=== PATIENT | male | born 1980 | race Caucasian/White ===

== ENCOUNTER 2019-03-14 14:49 | Emergency (ER) | payer SELFPAY ==
[~2019-03-14] VITALS: Ht 188 cm; Wt 104.3 kg
[~2019-03-14 14:49] MED LIST: ACHD5005 PO; CPR500T PO; HYDR1TAB8 OP; XANAX
--- NOTE | 2019-03-14 16:19 | ED Abdominal Pain ---
General Chief Complaint: Abdominal/GI Problems Stated Complaint: STOMACH PAIN/BLOOD IN STOOL Nursing Triage Note: PT AMBULATED TO ROOM 8 PT CO OF EPIGASTRIC PAIN AND DARK STOOL FOR A COUPLE DAYS Sepsis Screen: No Definite Risk Source of Information: Patient Exam Limitations: No Limitations (KARIN GIRON STUDENT) History of Present Illness Date Seen by Provider: Mar 14, 2019 Time Seen by Provider: 15:45 Initial Comments The patient reports intermittent epigastric pain for the last two days. He describes the pain as "feeling like gas pain" and rates it at 4-5/10. He also reports the sensation of bloating that has been going on for much longer and bl ack stools for a few days before the pain started. The patient has been nauseated but has not vomited and has had no loss of appetite or changes in diet. He reports loose stools but no diarrhea and a short bout of constipation 3 days ago. The patient also reports fatigue for the past 2 months and a 40lb weight gain over the past year. The remainder of the review of systems was nega tive. The physical exam was significant for epigastric tenderness. Location Injury Occurred: epigastric region Timing/Duration: 2-3 Days Severity/Quality: Moderate Location: Epigastric Radiation: No Radiation Activities at Onset: None (KARIN GIRON STUDENT) Timing/Duration: 2-3 Days Severity/Quality: Moderate, Aching Location: Epigastric Radiation: No Radiation Modifying Factors: Improves With Other (no noted aggravating or relieving factors) Associated Symptoms: No Fever/Chills; Nausea/Vomiting; No Swelling/Mass in Abdomen, No Weakness (IVIS SMITH MD) Allergies and Home Medications Allergies Coded Allergies: No Known Drug Allergies (Unverified , 06/16/10) Home Medications No Active Prescriptions or Reported Meds Patient Home Medication List Home Medication List Reviewed: Yes (KARIN GIRON STUDENT) Home Medication List Reviewed: Yes (IVIS SMITH MD) Review of Systems Review of Systems Constitutional: No fever; weight gain Respiratory: Denies Cough, Denies Shortness of Air Cardiovascular: Denies Chest Pain, Denies Lightheadedness Gastrointestinal: Abdomen Distended, Abdominal Pain, Nausea (KARIN GIRON STUDENT) Constitutional: see HPI Gastrointestinal: Abdominal Pain; Denies Diarrhea; Nausea, Rectal Bleeding (dark stools) Genitourinary: No Symptoms Reported Musculoskeletal: no symptoms reported Skin: no symptoms reported (IVIS SMITH MD) Past Mkqdyix-Qvluxw-Pgzouk Hx Past Med/Social Hx: Reviewed Nursing Past Med/Soc Hx (IVIS SMITH MD) Patient Social History Alcohol Use: Denies Use Recreational Drug Use: No Smoking Status: Current Everyday Smoker Type Used: Cigarettes Recent Foreign Travel: No Contact w/Someone Who Travel: No Recent Infectious Disease Expo: No Recent Hopitalizations: No (KARIN GIRON STUDENT) Alcohol Use: Denies Use Recreational Drug Use: No Smoking Status: Current Everyday Smoker (IVIS SMITH MD) Seasonal Allergies Seasonal Allergies: No (KARIN GIRON) Past Medical History Surgeries: Yes (HERNIA, FACIAL, KIDNEYSTONE) Tonsillectomy Respiratory: No Cardiac: No Neurological: No Sexually Transmitted Disease: No Kidney Stones Gastrointestinal: No Musculoskeletal: Yes (reports old Rx of Hydrocodone at home from renal stones) Chronic Back Pain Endocrine: No Cancer: No Psychosocial: Yes Anxiety Integumentary: No Blood Disorders: No (KARIN GIRON STUDENT) Surgeries: Yes Abdominal Respiratory: No Cardiac: No Genitourinary: Yes Musculoskeletal: Yes Psychosocial: Yes (IVIS SMITH MD) Family Medical History Reviewed Nursing Family Hx (IVIS SMITH MD) Physical Exam Vital Signs Vital Signs - First Documented 03/14/19 15:05 Temp 98.1 Pulse 102 Resp 18 B/P (MAP) 138/101 (113) Pulse Ox 97 (IVIS SMITH MD) Vital Signs Capillary Refill : Less Than 3 Seconds (KARIN GIRON STUDENT) Height/Weight/BMI Height: 6'2.00" Weight: 230lbs. oz. 104.397284lw; BMI Method:Stated General Appearance: WD/WN, no apparent distress Respiratory: lungs clear, normal breath sounds, no respiratory distress Cardiovascular: regular rate, rhythm, no edema, no murmur Gastrointestinal: normal bowel sounds, soft, no pulsatile mass, tenderness Rectal: normal rectal tone, black stool, heme positive stool; No mass Skin: normal color, warm/dry (ETCHESON,KARIN K MED STUDENT) General Appearance: WD/WN, no apparent distress Neck: full range of motion, supple Respiratory: lungs clear, normal breath sounds Cardiovascular: regular rate, rhythm, no murmur Gastrointestinal: soft, tenderness (epigastric mild) Back: normal inspection, no CVA tenderness, no vertebral tenderness Neurologic/Psychiatric: alert, oriented x 3 Skin: normal color, warm/dry (IVIS SMITH MD) Progress/Results/Core Measures Results/Orders Lab Results Laboratory Tests Test 03/14/19 16:05 Range/Units White Blood Count 6.7 4.3-11.0 10^3/uL Red Blood Count 4.70 4.35-5.85 10^6/uL Hemoglobin 14.3 13.3-17.7 G/DL Hematocrit 42 40-54 % Mean Corpuscular Volume 89 80-99 FL Mean Corpuscular Hemoglobin 30 25-34 PG Mean Corpuscular Hemoglobin Concent 34 32-36 G/DL Red Cell Distribution Width 12.4 10.0-14.5 % Platelet Count 248 130-400 10^3/uL Mean Platelet Volume 11.0 H 7.4-10.4 FL Neutrophils (%) (Auto) 60 42-75 % Lymphocytes (%) (Auto) 31 12-44 % Monocytes (%) (Auto) 6 0-12 % Eosinophils (%) (Auto) 2 0-10 % Basophils (%) (Auto) 0 0-10 % Neutrophils # (Auto) 4.1 1.8-7.8 X 10^3 Lymphocytes # (Auto) 2.1 1.0-4.0 X 10^3 Monocytes # (Auto) 0.4 0.0-1.0 X 10^3 Eosinophils # (Auto) 0.1 0.0-0.3 10^3/uL Basophils # (Auto) 0.0 0.0-0.1 10^3/uL Sodium Level 141 135-145 MMOL/L Potassium Level 3.8 3.6-5.0 MMOL/L Chloride Level 102 98-107 MMOL/L Carbon Dioxide Level 30 21-32 MMOL/L Anion Gap 9 5-14 MMOL/L Blood Urea Nitrogen 13 7-18 MG/DL Creatinine 0.93 0.60-1.30 MG/DL Estimat Glomerular Filtration Rate > 60 BUN/Creatinine Ratio 14 Glucose Level 90 70-105 MG/DL Calcium Level 8.6 8.5-10.1 MG/DL Corrected Calcium 8.6 8.5-10.1 MG/DL Total Bilirubin 0.3 0.1-1.0 MG/DL Aspartate Amino Transf (AST/SGOT) 22 5-34 U/L Alanine Aminotransferase (ALT/SGPT) 32 0-55 U/L Alkaline Phosphatase 103 40-136 U/L Total Protein 7.0 6.4-8.2 GM/DL Albumin 4.0 3.2-4.5 GM/DL Lipase 658 H 8-78 U/L (IVIS SMITH MD) My Orders Orders - IVIS SMITH MD Cbc With Automated Diff (03/14/19 15:53) Comprehensive Metabolic Panel (03/14/19 15:53) Lipase (03/14/19 15:53) Ed Iv/Invasive Line Start (03/14/19 15:53) Fecal Occult Bedside (03/14/19 15:53) Famotidine Injection (Pepcid Injection) (03/14/19 16:22) Ct Abdomen/Pelvis W (03/14/19 17:02) Ed Iv/Invasive Line Start (03/14/19 17:02) Lactated Ringers (Lr 1000 Ml Iv Solution (03/14/19 17:02) Iohexol Injection (Omnipaque 350 Mg/Ml 1 (03/14/19 17:30) Received Contrast (Hold Metformin- Contr (03/14/19 17:30) Sodium Chloride Flush (Catheter Flush Sy (03/14/19 17:30) Ns (Ivpb) (Sodium Chloride 0.9% Ivpb Bag (03/14/19 17:30) Hyoscyamine Sl Tablet (Levsin Sl Tablet) (03/14/19 18:15) (IVIS SMITH MD) Medications Given in ED Current Medications Medications Dose Ordered Sig/Jordan Route Start Time Stop Time Status Last Admin Dose Admin Iohexol 100 ml ONCE ONCE IV 03/14/19 17:30 03/14/19 17:31 DC 03/14/19 17:31 100 ML Lactated Ringer's 1,000 ml @ 0 mls/hr Q0M ONCE IV 03/14/19 17:02 03/14/19 17:04 DC 03/14/19 17:27 1,000 MLS/HR Sodium Chloride 10 ml NEEDED PRN IV 03/14/19 17:30 03/14/19 17:31 10 ML Sodium Chloride 100 ml ONCE ONCE IV 03/14/19 17:30 03/14/19 17:31 DC 03/14/19 17:31 80 ML (IVIS SMITH MD) Vital Signs/I&O 03/14/19 15:05 Temp 98.1 Pulse 102 Resp 18 B/P (MAP) 138/101 (113) Pulse Ox 97 (IVIS SMITH MD) Blood Pressure Mean: 113 Progress Progress Note : Progress Note I have seen and evaluated the patient and agree with above except as indicated. I have directed the plan of care. Patient is here with epigastric abdominal pain that has worsened over the last couple of days. Denies significant pain now but does feel bloated. We will check labs including CBC, CMP and lipase. Monitor patient. 1705: Patient does have elevated lipase. We will get CT abdomen and pelvis to evaluate pancreas. LR 1 L bolus. Patient did receive Pepcid 20 mg IV and he states that did help with abdominal cramping. Monitor patient. 1810: Overall improved. CT results as scheduled with the patient. Less than 0.125 mg by mouth given. Patient informed of ileus findings. He is still having bowel movements. He would like to try this at home. We did discuss concerns as well as risk and benefits. He would still like to try this at home. Discharge home with return precautions. Patient verbalize understanding of instructions and agreement with plan. Struck to return for any worsening and to stick to clear liquid diet for the next one to 2 days. He did discuss the case with Dr. Nielsen and he agrees to see him in the office. Patient to call for appointment. (IVIS SMITH MD) Diagnostic Imaging Diagonstic Imaging: CT Plain Films/CT/US/NM/MRI: abdomen, pelvis Comments [facility]. [place], [place] NAME: ACE [facility] REC#: [id number] PT STATUS: REG ER : 1980 PHYSICIAN: IVIS SMITH MD ADMIT DATE: 03/14/19/ER Draft Date of Exam:03/14/19 CT ABDOMEN/PELVIS W PROCEDURE: CT abdomen and pelvis with contrast. TECHNIQUE: Multiple contiguous axial images were obtained through the abdomen and pelvis after administration of intravenous contrast. Auto Exposure Controls were utilized during the CT exam to meet ALARA standards for radiation dose reduction. INDICATION: Epigastric pain for three days. Dark stools. Comparison is made with a study from 08/31/2013. FINDINGS: Liver, gallbladder and bile ducts are normal. The spleen, pancreas and adrenals are normal. The kidneys, ureters and bladder are normal. There are multiple fluid and air-filled loops of small bowel which are upper normal in diameter at 3 cm with no bowel wall edema seen. The distal bowel loops are filled with fluid but less distended. An obstructing lesion is not seen. There is air and fecal material in the colon. No edema of the colon. There is no free air or free fluid. IMPRESSION: Bowel gas pattern likely secondary to an ileus or enteritis. Low-grade partial small bowel obstruction cannot yet be excluded. Dictated on workstation # [id number] Dict: 03/14/19 1740 Trans: 03/14/19 1744 [id number] Interpreted by: JAILYN SOHOK MD Electronically signed by: (IVIS SMITH MD) Departure Impression Primary Impression: Abdominal pain Qualified Codes: R10.13 - Epigastric pain Additional Impression: Pancreatitis Qualified Codes: K85.90 - Acute pancreatitis without necrosis or infection, unspecified Disposition: 01 HOME, SELF-CARE Condition: Stable Departure-Patient Inst. Decision time for Depature: 18:18 (IVIS SMITH MD) Referrals: NO,LOCAL PHYSICIAN (PCP/Family) Primary Care Physician Patient Instructions: Acute Abdomen (Belly Pain), Adult (DC), Gastrointestinal Bleeding (DC), Pancreatitis (DC) Add. Discharge Instructions: All discharge instructions reviewed with patient and/or family. Voiced understanding. Clear liquid diet for the next 24-48 hours. Keep hydrated with taking small sips frequently. You may use lfxj-ofr-zfiznaj omeprazole 20 mg 1 tablet daily for at least the next 2 weeks. Up to the next 6 weeks. You should follow-up with Dr. Nielsen for further evaluation and possible upper endoscopy (scope). Call his offic e for appointment. Return for worse pain, fever, vomiting, weakness, breathing problems or other concerns as needed. You may take Tylenol/acetaminophen 1000 mg every 8 hours as needed for pain. Scripts Hyoscyamine Sulfate (Levsin-Sl) 0.125 Mg Tab.subl 0.125 MG SL Q4H, #10 TAB 0 Refills Prov: IVIS SMITH MD 03/14/19 Copy Copies To 1: CYNTHIA NIELSEN MD, JOSHUA K MED STUDENT Mar 14, 2019 16:19 IVIS SMITH MD Mar 14, 2019 17:14
[2019-03-14 16:22] LABS: BASOPHILS % (AUTO) 0 % (0-10); EOSINOPHILS # (AUTO) 0.1 10^3/uL (0.0-0.3); EOSINOPHILS % (AUTO) 2 % (0-10); HEMATOCRIT 42 % (40-54); HEMOGLOBIN 14.3 G/DL (13.3-17.7); LYMPHOCYTES # (AUTO) 2.1 X 10^3 (1.0-4.0); LYMPHOCYTES % (AUTO) 31 % (12-44); MEAN CORPUSCULAR HEMOGLOBIN 30 PG (25-34); MEAN CORPUSCULAR HGB CONC 34 G/DL (32-36); MEAN CORPUSCULAR VOLUME 89 FL (80-99); MONOCYTES # (AUTO) 0.4 X 10^3 (0.0-1.0); MONOCYTES % (AUTO) 6 % (0-12); NEUTROPHILS # (AUTO) 4.1 X 10^3 (1.8-7.8); NEUTROPHILS % (AUTO) 60 % (42-75); PLATELET COUNT 248 10^3/uL (130-400); RED CELL DISTRIBUTION WIDTH 12.4 % (10.0-14.5); WHITE BLOOD COUNT 6.7 10^3/uL (4.3-11.0)
[2019-03-14] MEDS ORDERED: FAMOTIDINE 20MG/2ML IV (PEPCID) IV STA (16:22)
[2019-03-14 16:43] LABS: ALANINE AMINOTRANSFERASE 32 U/L (0-55); ALKALINE PHOSPHATASE 103 U/L (40-136); BILIRUBIN,TOTAL 0.3 MG/DL (0.1-1.0); BUN/CREATININE RATIO 14; CALCIUM 8.6 MG/DL (8.5-10.1); CARBON DIOXIDE 30 MMOL/L (21-32); CHLORIDE 102 MMOL/L (98-107); CREATININE SERUM 0.93 MG/DL (0.60-1.30); GFR ESTIMATED > 60; GLUCOSE 90 MG/DL (70-105); LIPASE 658 U/L (8-78); POTASSIUM 3.8 MMOL/L (3.6-5.0); SODIUM 141 MMOL/L (135-145)
[2019-03-14] MEDS ORDERED: LACTATED RINGERS 1,000 ML IV ONE (17:02)
[2019-03-14] MEDS ORDERED: IOHEXOL 350 MG/ML 100 ML (OMNIPAQUE 350) VIAL IV ONE (17:30)
[2019-03-14] MEDS ORDERED: HOLD METFORMIN - RECEIVED CONTRAST 20 ML VIAL IV SCH (17:30)
[2019-03-14] MEDS ORDERED: CATHETER FLUSH 10 ML SYR IV PRN (17:30)
[2019-03-14] MEDS ORDERED: NS 100 ML (IVPB) BAG IV ONE (17:30)
--- NOTE | 2019-03-14 17:45 | Diagnostic Imaging Report ---
PROCEDURE: CT abdomen and pelvis with contrast. TECHNIQUE: Multiple contiguous axial images were obtained through the abdomen and pelvis after administration of intravenous contrast. Auto Exposure Controls were utilized during the CT exam to meet ALARA standards for radiation dose reduction. INDICATION: Epigastric pain for three days. Dark stools. Comparison is made with a study from 08/31/2013. FINDINGS: Liver, gallbladder and bile ducts are normal. The spleen, pancreas and adrenals are normal. The kidneys, ureters and bladder are normal. There are multiple fluid and air-filled loops of small bowel which are upper normal in diameter at 3 cm with no bowel wall edema seen. The distal bowel loops are filled with fluid but less distended. An obstructing lesion is not seen. There is air and fecal material in the colon. No edema of the colon. There is no free air or free fluid. IMPRESSION: Bowel gas pattern likely secondary to an ileus or enteritis. Low-grade partial small bowel obstruction cannot yet be excluded. Dictated by: Dictated on workstation # [id number]
[2019-03-14] MEDS ORDERED: HYOSCYAMINE 0.125 MG (LEVSIN) TAB SL ONE (18:15)
[2019-03-14] MEDS ORDERED: HYOS0.1283 SL (18:16)
[2019-03-14 18:24] VITALS: BP 138/101
== END 2019-03-14 18:24 | disposition home or self-care (01) ==
LOC: EDUNIT# 14:49 → ER 14:50
DX: K85.90 Acute pancreatitis without necrosis or infection, unspecified (principal); F41.9 Anxiety disorder, unspecified; F17.210 Nicotine dependence, cigarettes, uncomplicated; Z90.89 Acquired absence of other organs; Z87.442 Personal history of urinary calculi
CPT/HCPCS: 36415; 74177; 80053; 82274; 83690; 85025

== ENCOUNTER 2021-05-11 21:14 | Emergency (ER) | payer SELFPAY ==
[~2021-05-11] VITALS: Ht 73 cm; Wt 114.9 kg
[~2021-05-11 21:14] MED LIST changes: +HYOS0.1283 SL
--- OUTSIDE RECORDS SUMMARY | 2021-05-11 21:19 | XMS REPORT | Clinical Summary ---
Author Author [facility] Organization [facility] Address Unknown Phone Unavailable Care Team Providers Care Cloth Trimmer Hand Name Role Phone Yvon Jalloh MD PCP [phone] Source Comments Some departments are not documenting in the electronic medical record. If you d o not see the information that you expected, contact Release of Information in [facility] Health Information Management department at [phone] for further assistan ce in locating additional records.[facility] Allergies Not on File Medications Not on file Active Problems Not on file Social History Date Tobacco Use Types Packs/Day Years Used Never Assessed Sex Assigned at Date Recorded Not on file Last Filed Vital Signs Not on file Plan of Treatment Health Maintenance Due Date Last Done Comments HIV SCREENING 1996 DTAP/TDAP VACCINES (1 - 10/14/1999 Tdap) HEPATITIS C SCREENING 10/14/1999 PHYSICAL (COMPREHENSIVE) 10/14/1999 EXAM INFLUENZA VACCINE 02/10/2021 Results Not on filefrom Last 3 Months
--- OUTSIDE RECORDS SUMMARY | 2021-05-11 21:19 | XMS REPORT | Clinical Summary ---
Author Author [facility] Organization [facility] Address Unknown Phone Unavailable Care Team Providers Care Financial Administrative Assistant Name Role Phone PCP Unavailable Allergies No known active allergies Medications No known medications Active Problems Not on file Social History Date Tobacco Use Types Packs/Day Years Used Current Every Day Smoker Cigarettes 0.5 13 Comments Alcohol Use Standard Drinks/Week No 0 (1 standard drink = 0.6 o z pure alcohol) Sex Assigned at Date Recorded Not on file Last Filed Vital Signs Reading Time Taken Comments Vital Sign 143/77 08/20/2014 1:47 PM PROCEDURES ANALYST Blood Pressure 120 08/20/2014 1:47 PM PROCEDURES ANALYST Pulse 38.6 C (101.5 F) 08/20/2014 1:47 PM PROCEDURES ANALYST Temperature 18 08/20/2014 1:47 PM PROCEDURES ANALYST Respiratory Rate 100% 08/20/2014 1:47 PM PROCEDURES ANALYST Oxygen Saturation - - Inhaled Oxygen Concentration 77.1 kg (170 lb) 08/20/2014 1:47 PM PROCEDURES ANALYST Weight 188 cm (6' 2") 08/20/2014 1:47 PM PROCEDURES ANALYST Height 21.83 08/20/2014 1:47 PM PROCEDURES ANALYST Body Mass Index Plan of Treatment Not on file Results Not on filefrom Last 3 Months
--- NOTE | 2021-05-11 22:23 | ED Abdominal Pain ---
General Chief Complaint: Abdominal/GI Problems Stated Complaint: L SIDE ABD PAIN Source of Information: Patient Exam Limitations: No Limitations History of Present Illness Date Seen by Provider: May 11, 2021 Time Seen by Provider: 22:11 Initial Comments This is a 40-year-old male who presented to the ER with complaints of left flank pain That started approximately 1.5 hours ago. States that he was sitting at home when all this and he felt a sharp stabbing pain in his mid back and is now radiated into his left lower quadrant. States that he does have a history of kidney stones and feels that this might be another stone. States pain is sharp, stabbing, waxes and wanes, 10 out of 10 pain. Additionally reports intermittent nausea when pain is at its highest. Has not taken anything prior to arrival. Denies fever, chills, vomiting, difficulty urinating, hematuria, dysuria. Allergies and Home Medications Allergies Coded Allergies: No Known Drug Allergies (Unverified , 06/16/10) Patient Home Medication List Home Medication List Reviewed: Yes Hyoscyamine Sulfate (Levsin-Sl) 0.125 Mg Tab.subl, 0.125 MG SL Q4H Prescribed by: IVIS SMITH on 03/14/191815 Review of Systems Review of Systems Constitutional: no symptoms reported EENTM: No Symptoms Reported Respiratory: No Symptoms Reported Cardiovascular: No Symptoms Reported Gastrointestinal: See HPI Genitourinary: See HPI Musculoskeletal: see HPI Skin: no symptoms reported Psychiatric/Neurological: No Symptoms Reported Endocrine: No Symptoms Reported Hematologic/Lymphatic: No Symptoms Reported Past Ribhbww-Gvmwzj-Ztsmld Hx Seasonal Allergies Seasonal Allergies: No Past Medical History Surgeries: Yes Abdominal Respiratory: No Cardiac: No Neurological: No Sexually Transmitted Disease: No Genitourinary: Yes Kidney Stones Gastrointestinal: No Musculoskeletal: Yes Chronic Back Pain Endocrine: No Cancer: No Psychosocial: Yes Anxiety Integumentary: No Blood Disorders: No Physical Exam Vital Signs Capillary Refill : Height/Weight/BMI Height: 6'2.00" Weight: 230lbs. oz. 104.544495mo; BMI Method:Stated General Appearance: WD/WN, no apparent distress HEENT: PERRL/EOMI, normal ENT inspection, pharynx normal Neck: full range of motion, supple, normal inspection Respiratory: lungs clear, normal breath sounds, no respiratory distress, no accessory muscle use Progress/Results/Core Measures Results/Orders Lab Results Laboratory Tests Test 05/11/21 22:47 Range/Units My Orders Orders - BAYRON SALMON APRN Ketorolac Injection (Toradol Injection) (05/11/21 22:30) Ondansetron Injection (Zofran Injectio (05/11/21 22:30) Fentanyl Inj (Sublimaze Injection) (05/11/21 22:30) Ns Iv 1000 Ml (Sodium Chloride 0.9%) (05/11/21 22:30) Abdomen/Kub 1view (05/11/21 22:18) Ed Iv/Invasive Line Start (05/11/21 22:18) Ua Culture If Indicated (05/11/21 22:18) Medications Given in ED Current Medications Medications Dose Ordered Sig/Jordan Route Start Time Stop Time Status Last Admin Dose Admin Fentanyl Citrate 50 mcg ONCE ONCE IVP 05/11/21 22:30 05/11/21 22:31 DC 05/11/21 22:34 50 MCG Ketorolac Tromethamine 30 mg ONCE ONCE IVP 05/11/21 22:30 05/11/21 22:31 DC 05/11/21 22:34 30 MG Ondansetron HCl 4 mg ONCE ONCE IVP 05/11/21 22:30 05/11/21 22:31 DC 05/11/21 22:34 4 MG Sodium Chloride 1,000 ml @ 999 mls/hr Q1H ONCE IV 05/11/21 22:30 05/11/21 23:30 05/11/21 22:34 999 MLS/HR Departure Impression Primary Impression: Calculus of kidney Disposition: 01 HOME, SELF-CARE Condition: Improved Departure-Patient Inst. Decision time for Depature: 23:11 Referrals: NO,LOCAL PHYSICIAN (PCP/Family) Primary Care Physician Patient Instructions: Kidney Stone, Adult ED, How to Strain Your Urine Add. Discharge Instructions: Plan: 1. Drink plenty of fluids to help stone pass. 2. May take Zofran as needed every 6 hours for nausea. 3. Take Flomax daily every evening as directed. 4. Call Dr. Chen office for follow up appointment. 5. Take Hydrocodone every 6 hours as needed for severe pain. May take with Ibuprofen 600mg by mouth. 6. Take Lisinopril 10mg by mouth daily and establish with primary care provider. 7. Return for any new, concerning, or worsening symptoms. All discharge instructions reviewed with patient and/or family. Voiced understanding. Scripts Tamsulosin HCl (Flomax) 0.4 Mg Cap 0.4 MG PO DAILY for 7 Days, #7 CAP 0 Refills Prov: BAYRON SALMON COURT INTERPRETER 05/11/21 Ondansetron (Ondansetron Odt) 4 Mg Tab.rapdis 4 MG PO Q6H PRN for NAUSEA/VOMITING, #8 TAB 0 Refills Prov: BAYRON SALMON COURT INTERPRETER 05/11/21 Hydrocodone/Acetaminophen (Hydrocodone-Acetamin 5-325 mg) 1 Each Tablet 1 TAB PO Q6H PRN for PAIN-SEVERE (8-10), #10 TAB 0 Refills Prov: BAYRON SALMON COURT INTERPRETER 05/11/21 Lisinopril (Lisinopril) 10 Mg Tablet 10 MG PO DAILY, #30 TAB 0 Refills Prov: BAYRON SALMON COURT INTERPRETER 05/11/21 BAYRON SALMON APRN May 11, 2021 22:23
[2021-05-11] MEDS ORDERED: NS IV 1000 ML 1,000 ML IV ONE (22:30)
[2021-05-11] MEDS ORDERED: KETOROLAC 30 MG/ML VIAL IVP ONE (22:30)
[2021-05-11] MEDS ORDERED: ONDANSETRON 4 MG/2 ML (SDV) Z0FRAN IVP ONE (22:30)
[2021-05-11] MEDS ORDERED: fentaNYL INJ 100 MCG/2 ML AMP IVP ONE (22:30)
[2021-05-11 22:55] LABS: BILIRUBIN,URINE NEGATIVE (NEGATIVE); CLARITY,URINE CLEAR; COLOR,URINE YELLOW; GLUCOSE, URINE (UA) NEGATIVE (NEGATIVE); KETONES,URINE NEGATIVE (NEGATIVE); LEUKOCYTE ESTERASE ,URINE NEGATIVE (NEGATIVE); NITRITE,URINE NEGATIVE (NEGATIVE); PH,URINE 6.5 (5-9); PROTEIN,URINE TRACE (NEGATIVE)
--- NOTE | 2021-05-11 23:04 | Diagnostic Imaging Report ---
EXAMINATION: Abdominal radiographs, single view. 2 images. DATE: May 11, 2021. CLINICAL INDICATION: 40-year-old male, flank pain. COMPARISON: CT abdomen and pelvis March 14, 2019. COMMENTS: The upper abdomen is not entirely imaged. There are no abnormally dilated gas-filled segments of bowel. There is a mild to moderate volume stool in the right colon. There is no identified free intracranial air, pneumatosis or portal venous gas. There is no identified abnormal radiodensity overlying the expected positions of the kidneys or ureters. IMPRESSION: 1. No radiographically apparent acute abdominal abnormality. 2. Mild to moderate volume stool in the right colon. Dictated by: Dictated on workstation # [id number]
[2021-05-11 23:12] LABS: BACTERIA,URINE NEGATIVE /HPF; RBC,URINE >100 /HPF
[2021-05-11] MEDS ORDERED: ONDA4TAB11 PO (23:15)
[2021-05-11] MEDS ORDERED: LISI10TA25 PO (23:15)
[2021-05-11] MEDS ORDERED: ACHD5005 PO (23:15)
[2021-05-11] MEDS ORDERED: TMSL.4C PO (23:15)
[2021-05-11 23:30] VITALS: BP 153/105
== END 2021-05-11 23:32 | disposition home or self-care (01) ==
LOC: EDUNIT# 21:14 → ER 21:16
DX: N20.0 Calculus of kidney (principal)
CPT/HCPCS: 74018; 81000